=== PATIENT | female | born 2000 | race Caucasian/White ===

== ENCOUNTER 2022-01-25 11:30 | Emergency (ER) | payer OTHER, SELFPAY ==
[2022-01-25 11:54] VITALS: BP 114/67; PULSE 92; RESP 16; TEMP 36.7; O2SAT 99; BMI 24.2
--- NOTE | 2022-01-25 12:49 | ED.FEMALEGU ---
HPI - Female Genitourinary General Chief complaint: Unspecified Complaint, Adult Stated complaint: Vaginal bleeding Time Seen by Provider: 01/25/22 12:26 History of Present Illness HPI Narrative: 21-year-old female patient presents to emergency department via POV with complaints of bloody stools since October 2021 and labial pain for the past 2-3 days. The patient reports that she has known history of vaginismus and has been receiving treatment via pelvic floor PT with significant improvement in her discomfort. She states her bloody stools and labial pain not associated with this discomfort. She states that she has been using Lavender coconut oil over her labia to assist with redness and swelling. She states that swelling, redness, and discomfort is worsened when she uses her vibrator with intercourse. The patient denies any anal penetration, trauma, or injury. The patient states that she has had long history of diarrhea and constipation, waxing and waning, but she denies previous history of bloody stools associated. She has no history of hemorrhoids. She denies significant discharge. She reports she is currently on her menses. She denies abdominal pain, fever, or chills. She denies other acute concerns or complaints. See nursing notes for complete details. Related Data Home Medications Medication Instructions Recorded Confirmed Mexican supplement for mental 1 pill PO BID 01/25/22 01/25/22 health IUD 01/25/22 Allergies Allergy/AdvReac Type Severity Reaction Status Date / Time zpak Allergy Severe Swelling Uncoded 01/25/22 11:59 of Lip/Tongue/Throat Review of Systems Const: Denies: fever, chills, fatigue or malaise Cardio: Denies: chest pain or shortness of breath with exertion Resp: Denies: shortness of breath GI: Reports: diarrhea, constipation, painful bowel movements and blood in stool; Denies: abdominal pain, nausea, vomiting, heartburn, rectal pain, rectal swelling or rectal itching Endo: Denies: fatigue PFSH PFSH Social History Smoking Status: Never smoker Do you use any of these nicotine containing products: None How often do you have a drink containing alcohol: never AUDIT-C Alcohol total score: 0 Non-prescribed substance use: denies use Exam Const: Vital Signs, click to edit/add: Vital Signs - 24 hr 01/25/22 11:54 Temperature 98.1 F Pulse Rate [Pulse Oximeter] 92 Respiratory Rate 16 Blood Pressure [Ri ght Upper Arm] 114/67 Pulse Oximetry 99 Documenting provider has reviewed patient's vital signs: yes Common normals: no apparent distress, oriented x3, no limitations, healthy appearing, alert and well nourished General appearance: cooperative, comfortable, well kempt and well developed; not in distress Orientation/consciousness: Yes awake, Yes oriented to person, Yes oriented to place and Yes oriented to time Resp: Common normals: normal respiratory effort, no retractions, no use of accessory muscles and clear to auscultation bilaterally Auscultation: clear to auscultation bilaterally Cardio: Common normals: regular rate, regular rhythm, S1 normal heart sound and S2 normal heart sound Rate: regular rate Rhythm: regular rhythm Heart sounds: S1 normal and S2 normal GI: Common normals: Normal to inspection, nondistended, normoactive bowel sounds present, soft to palpation and non-tender Palpation: soft Rectal Exam - Female: visual inspection normal and normal sphincter tone; no external hemorrhoid(s), no internal hemorrhoid(s) and no mass(es) noted : Common normals: appearance of the vagina normal External Female Exam: normal appearance of the urethra; no erythema, nontender externally, no external swelling, no external lesion and no ecchymosis Speculum exam - vagina: vaginal bleeding (on menses) OB/external & speculum: Yes vaginal bleeding (on menses); no vulvar tenderness Extremity: Common normals: normal to inspection and full ROM Neuro: Common normals: oriented x3 Sensorium/orientation: awake, alert, oriented to person, oriented to place and oriented to time Psych: Common normals: mental status grossly normal, cooperative and affect normal Appearance: well kempt Attitude: calm Insight: insight good Judgement: judgment good Skin: Common normals: no rashes or lesions noted General skin exam: no rashes or lesions noted Course Vital Signs Vital signs: Initial Vital Signs Temperature 98.1 F 01/25/22 11:54 Temperature Source Temporal Artery Scan 01/25/22 11:54 Pulse Rate 92 01/25/22 11:54 Respiratory Rate 16 01/25/22 11:54 Blood Pressure 114/67 01/25/22 11:54 Blood Pressure Mean 82 01/25/22 11:54 Blood Pressure Position Sitting 01/25/22 11:54 Pulse Oximetry 99 01/25/22 11:54 Oxygen Delivery Method 01/25/22 11:54 Vital Signs Temperature 98.1 F 01/25/22 11:54 Pulse Rate 92 01/25/22 11:54 Respiratory Rate 16 01/25/22 11:54 Blood Pressure 114/67 01/25/22 11:54 Pulse Oximetry 99 01/25/22 11:54 Temperature 98.1 F 01/25/22 11:54 Pulse Rate 92 01/25/22 11:54 Respiratory Rate 16 01/25/22 11:54 Blood Pressure 114/67 01/25/22 11:54 Pulse Oximetry 99 01/25/22 11:54 MDM - Female Genitourinary Differential Diagnosis Differential diagnosis: Likely bacterial vaginosis, cervicitis, vaginitis and cystitis Discharge Plan Discharge Clinical Impression: Labial pain, Bloody stool Patient Disposition: Home, Self-Care Condition: Stable Instructions: Rectal Bleeding (ED) Additional Instructions: Thank you for choosing [facility] for your care today. Drink plenty of water in small sips frequently. Drink, at minimum, 75oz of water every day. Use probiotic of choice - [employer], [employer], or Jugofir - or substitute. Consider use of daily coconut oil supplement, apple cider vinegar supplement, or magnesium oxide. Use Miralax once daily per package directions until having regular stools. Consider decrease to 1/2 capful daily or every other day as needed for regular bowel movements. For labial pain and discomfort, do not use vibrator between you and partner. Consider barrier cream for treatment. Consider 4oz of prune juice or coffee mixed with one pat of butter warmed in the microwave to encourage bowels to move. If no bowel movement within three days, return for reevaluation and consideration of imaging or additional work-up as indicated. I recommend calling primary care for follow-up in the next 3-5 days. Consider scheduling appointment with Dr Tong for consideration of diagnostic colonoscopy follow-up. If new or worsening symptoms develop or you have any concerns in the meantime, please call your primary care clinic or return to the ER for re-evaluation. Activity Level: No Restrictions and Activity as Tolerated Discharge Diet: Regular Prescriptions: No Action Mexican supplement for mental health 1 pill PO BID 0RF IUD 0RF Follow Up/Referrals: Dorina Tong MD [Staff Physician] - (BRBPR x 2mo, negative rectal exam.) Stand Alone Forms: [employer] Info Instructions
== END 2022-01-25 13:17 | disposition home or self-care (01) ==
PROVIDERS: Emergency Provider Family Medicine
DX: K92.1 Melena (principal); R10.2 Pelvic and perineal pain
CPT/HCPCS: 99282; 99283